=== PATIENT | female | born 1985 | race African-American/Black ===

== ENCOUNTER 2021-01-19 08:48 | Emergency (ER) | payer SELFPAY ==
[~2021-01-19] VITALS: Ht 162.6 cm; Wt 53.5 kg
[2021-01-19] MEDS ORDERED: IBUPROFEN 600 MG TAB PO ONE (09:30)
[2021-01-19 10:12] VITALS: BP 143/95
== END 2021-01-19 11:04 | disposition home or self-care (01) ==
LOC: ER 08:48
DX: S82.832A Other fracture of upper and lower end of left fibula, initial encounter for closed fracture (principal); F17.210 Nicotine dependence, cigarettes, uncomplicated; X50.9XXA Other and unspecified overexertion or strenuous movements or postures, initial encounter; Y93.89 Activity, other specified; Y92.89 Other specified places as the place of occurrence of the external cause; Y99.8 Other external cause status
CPT/HCPCS: 29515; 73610